=== PATIENT | male | born 1990 | race African-American/Black ===

== ENCOUNTER 2020-09-24 01:30 | Emergency (ER) | payer MEDICAID ==
[~2020-09-24] VITALS: Ht 182.9 cm; Wt 77.0 kg
[2020-09-24 02:03] VITALS: BP 105/64
[2020-09-24] MEDS ORDERED: NAPR-681 PO (03:29)
== END 2020-09-24 04:49 | disposition home or self-care (01) ==
LOC: ER 01:30
DX: M25.531 Pain in right wrist (principal)
CPT/HCPCS: 29125; 73110; 99283

== ENCOUNTER 2020-11-23 22:41 | Emergency (ER) | payer MEDICAID ==
[~2020-11-23] VITALS: Ht 182.9 cm; Wt 78.2 kg
[~2020-11-23 22:41] MED LIST: AMOX-424 PO; IBUP-2030 PO; NAPR-681 PO
[2020-11-23] MEDS ORDERED: KETOROLAC 60MG/2ML VIAL IM ONE (23:45)
[2020-11-24] MEDS ORDERED: LIDOCAINE HCL 1% 20ML VIAL (Pyxis) INJ INFIL ONE (00:15)
[2020-11-24] MEDS ORDERED: IBUP-2029 MT (03:46)
[2020-11-24 04:00] VITALS: BP 112/65
== END 2020-11-24 04:15 | disposition home or self-care (01) ==
LOC: ER 22:41
DX: S63.115A Dislocation of metacarpophalangeal joint of left thumb, initial encounter (principal); J45.909 Unspecified asthma, uncomplicated; Z98.890 Other specified postprocedural states; X58.XXXA Exposure to other specified factors, initial encounter; Y93.89 Activity, other specified; Y92.89 Other specified places as the place of occurrence of the external cause; Y99.8 Other external cause status
CPT/HCPCS: 26700; 73130; 96372; 99152; 99285; J1885; J3490; 99284

== ENCOUNTER 2020-12-11 09:09 | Emergency (ER) | payer MEDICAID ==
[~2020-12-11] VITALS: Ht 182.9 cm; Wt 82.0 kg
[~2020-12-11 09:09] MED LIST changes: +IBUP-2029 MT
[2020-12-11 10:20] LABS: BASOPHILS % 1.2 % (0.0-2.0); EOSINOPHILS % 1.7 % (0.0-5.0); HEMATOCRIT. 45.5 % (42.0-52.0); LYMPHOCYTES % 22.2 % (20.0-50.0); MEAN CORPUSCULAR HEMOGLOBIN 27.2 pg (28.0-32.0); MEAN CORPUSCULAR VOLUME 82.6 fL (80.0-94.0); MEAN PLATELET VOLUME 6.4 fl (7.4-10.4); MONOCYTES % 9.4 % (2.0-8.0); NEUTROPHILS % 65.5 % (40.0-76.0); PLATELET 257 x1000/uL (130-400); RED CELL DISTRIBUTION WIDTH 13.1 % (11.6-14.6)
[2020-12-11 10:25] LABS: CLARITY URINE CLEAR (CLEAR); COLOR URINE YELLOW (YELLOW); KETONES URINE 2+ (NEGATIVE); LEUKOCYTE ESTERASE URINE NEGATIVE (NEGATIVE); NITRITE URINE NEGATIVE (NEGATIVE); OCCULT BLOOD URINE 3+ (NEGATIVE); PROTEIN URINE NEGATIVE (NEGATIVE); SPECIFIC GRAVITY URINE 1.028 (1.005-1.030)
[2020-12-11 10:28] LABS: CHLORIDE 105 mEq/L (98-107)
[2020-12-11 10:30] LABS: INR 1.1; PROTHROMBIN TIME 11.4 sec (9.6-11.0)
[2020-12-11 10:33] LABS: ETHANOL BLOOD < 10 mg/dL
[2020-12-11 10:36] LABS: LDL CHOLESTEROL 81 mg/dL (5-100)
[2020-12-11] MEDS ORDERED: IOHEXOL-350 100 ML BOTTLE ONE (10:41)
[2020-12-11 10:44] LABS: *AMPHETAMINES SCREEN URINE NEGATIVE (NEGATIVE); *BARBITURATES SCREEN URINE NEGATIVE (NEGATIVE); *BENZODIAZEPINES SCREEN URINE NEGATIVE (NEGATIVE); *COCAINE SCREEN URINE NEGATIVE (NEGATIVE); METHADONE URINE SCREEN NEGATIVE (NEGATIVE); OPIATES URINE SCREEN NEGATIVE (NEGATIVE)
[2020-12-11 10:45] LABS: CANNABINOID URINE SCREEN PRESUMTIVE POSITIVE (NEGATIVE); PHENCYCLIDINE URINE SCREEN NEGATIVE (NEGATIVE)
[2020-12-11] MEDS ORDERED: P20 PO ×2 (11:39→14:18)
[2020-12-11 11:55] VITALS: BP 128/78
== END 2020-12-11 12:07 | disposition home or self-care (01) ==
LOC: ER 09:09 → CANBEDREQ 11:43 → ER 12:07
DX: G51.0 Bell's palsy (principal); I49.8 Other specified cardiac arrhythmias; Z98.890 Other specified postprocedural states
CPT/HCPCS: 36415; 70450; 70496; 70498; 71045; 80053; 80305; 80320; 81003; 82962; 83721; 84484; 85025; 85610; 93005; 99291; Q9967; G0480

== ENCOUNTER 2020-12-19 08:25 | Emergency (ER) | payer MEDICAID ==
[~2020-12-19] VITALS: Ht 182.9 cm; Wt 81.0 kg
[~2020-12-19 08:25] MED LIST changes: +P20 PO
[2020-12-19 11:11] VITALS: BP 124/69
== END 2020-12-19 11:12 | disposition home or self-care (01) ==
LOC: ER 08:25
DX: G51.0 Bell's palsy (principal); J45.909 Unspecified asthma, uncomplicated; Z79.899 Other long term (current) drug therapy; Z98.890 Other specified postprocedural states
CPT/HCPCS: 99281

== ENCOUNTER 2021-12-08 22:50 | Emergency (ER) | payer MEDICAID ==
[~2021-12-08] VITALS: Ht 182.9 cm; Wt 78.6 kg
[2021-12-09] MEDS ORDERED: IBUPROFEN 600MG TABLET PO ONE (01:00)
[2021-12-09] MEDS ORDERED: NAPR-1176 MT (01:01)
[2021-12-09 01:51] VITALS: BP 108/66
== END 2021-12-09 01:54 | disposition home or self-care (01) ==
LOC: ER 22:50
DX: M25.531 Pain in right wrist (principal); R20.0 Anesthesia of skin; J45.909 Unspecified asthma, uncomplicated; Z79.899 Other long term (current) drug therapy
CPT/HCPCS: 29125; 99283

== ENCOUNTER 2021-12-27 21:00 | Emergency (ER) | payer MEDICAID ==
[~2021-12-27] VITALS: Ht 182.9 cm; Wt 77.0 kg
[~2021-12-27 21:00] MED LIST changes: +NAPR-1176 MT
[2021-12-27 21:31] VITALS: BP 115/40
[2021-12-28] MEDS ORDERED: IBUP-2029 MT (03:33)
[2021-12-28] MEDS ORDERED: LIDO700A30 TP (03:33)
[2021-12-28] MEDS ORDERED: KETOROLAC 60MG/2ML VIAL IM ONE (03:45)
== END 2021-12-28 04:31 | disposition home or self-care (01) ==
LOC: ER 21:00
DX: M25.511 Pain in right shoulder (principal); M79.18 Myalgia, other site; J45.909 Unspecified asthma, uncomplicated; G51.0 Bell's palsy
CPT/HCPCS: 96372; 99283; J1885

== ENCOUNTER 2024-01-02 21:30 | Emergency (ER) | payer MEDICAID ==
[~2024-01-02] VITALS: Ht 182.9 cm; Wt 97.0 kg
[~2024-01-02 21:30] MED LIST changes: +LIDO700A30 TP
[2024-01-02 21:37] VITALS: O2SAT 99
[2024-01-02 23:08] VITALS: BP 129/77; PULSE 90; RESP 18; TEMP 36.61404; O2SAT 99
== END 2024-01-02 23:08 | disposition home or self-care (01) ==
LOC: ER 21:30
DX: H57.12 Ocular pain, left eye (principal); J45.909 Unspecified asthma, uncomplicated; Z98.890 Other specified postprocedural states; Z79.899 Other long term (current) drug therapy
CPT/HCPCS: 99281

== ENCOUNTER 2024-10-21 02:45 | Emergency (ER) | payer MEDICAID, OTHER ==
[~2024-10-21] VITALS: Ht 182.9 cm; Wt 93.0 kg
[~2024-10-21 02:45] MED LIST changes: +IBUP-1455 MT; -IBUP-2029 MT
[2024-10-21 03:01] VITALS: O2SAT 98
[2024-10-21] MEDS ORDERED: CEPH500T MT (03:53)
[2024-10-21 04:27] VITALS: BP 103/57; PULSE 83; RESP 18; TEMP 36.8; O2SAT 100
== END 2024-10-21 04:32 | disposition home or self-care (01) ==
LOC: ER 02:45
DX: S80.212A Abrasion, left knee, initial encounter (principal); S80.211A Abrasion, right knee, initial encounter; L08.9 Local infection of the skin and subcutaneous tissue, unspecified; Z79.899 Other long term (current) drug therapy; Z79.52 Long term (current) use of systemic steroids; V89.2XXA Person injured in unspecified motor-vehicle accident, traffic, initial encounter; Y93.89 Activity, other specified; Y92.89 Other specified places as the place of occurrence of the external cause; Y99.8 Other external cause status
CPT/HCPCS: 99283